=== PATIENT | female | born 1980 | race Caucasian/White ===

== ENCOUNTER 2025-07-05 12:03 | Inpatient (IN) | payer OTHER ==
[2025-07-05] MEDS ORDERED: NALOXONE (NARCAN) HCL 4 MG/0.1 ML SPRAY NS PRN (12:31)
[2025-07-05] MEDS ORDERED: BENZONATATE 200 MG CAPSULE PO PRN (12:31)
[2025-07-05] MEDS ORDERED: METHOCARBAMOL 500 MG TABLET PO PRN (12:31)
[2025-07-05] MEDS ORDERED: BISMUTH SUBSALICYLATE 524 MG/30 ML PO PRN (12:31)
[2025-07-05] MEDS ORDERED: guaiFENesin 600 MG TABLET.ER (FP) PO PRN (12:31)
[2025-07-05] MEDS ORDERED: MAG HYDROX/AL HYDROX/SIMETH 30 ML UNIT-DOSE CUP PO PRN (12:31)
[2025-07-05] MEDS ORDERED: ONDANSETRON *ODT* 4 MG TABLET SL PRN (12:31)
[2025-07-05] MEDS ORDERED: MAGNESIUM HYDROX 2400MG/30ML ORAL SUSPENSION 30 ML CUP PO PRN (12:31)
[2025-07-05] MEDS ORDERED: ACETAMINOPHEN 325 MG TABLET (FP) PO PRN (12:31)
[2025-07-05] MEDS ORDERED: POLYETHYLENE GLYCOL (HEALTHYLAX) 3350 17 GM PACKET PO PRN (12:31)
[2025-07-05] MEDS ORDERED: DICYCLOMINE HCL 10 MG CAPSULE PO PRN (12:31)
[2025-07-05] MEDS ORDERED: IBUPROFEN 400 MG TABLET (FP) PO PRN (12:31)
[2025-07-05] MEDS ORDERED: LOPERAMIDE HCL 2 MG CAPSULE PO PRN (12:31)
[2025-07-05] MEDS ORDERED: IBUPROFEN 600 MG TABLET (FP) PO PRN (12:31)
[2025-07-05] MEDS ORDERED: BENZOCAINE/MENTHOL (CHLORASEPTIC ) LOZENGE MM PRN (12:31)
[2025-07-05 13:05] VITALS: BMI 21.4
[2025-07-05] MEDS: PRENATAL VITAMINS W/ FOLIC ACID TABLET (FP) PO SCH (15:10)
[2025-07-05] MEDS: ACAMPROSATE CALCIUM 333 MG TABLET.DR PO SCH (18:31)
[2025-07-05] MEDS ORDERED: MIRTAZAPINE 15 MG TABLET (FP) ONE (21:40)
[2025-07-05] MEDS: MIRTAZAPINE 30 MG TABLET PO ONE (22:32)
[2025-07-05] MEDS: THIAMINE 100 MG TABLET PO SCH (22:32)
[2025-07-05] MEDS: APIXABAN 2.5 MG TABLET PO SCH (22:32)
[2025-07-05] MEDS: MELATONIN 5 MG TABLETS PO SCH (22:34)
[2025-07-05] MEDS: MIDODRINE HCL 5 MG TABLET PO SCH (23:52)
[2025-07-06] MEDS: NICOTINE 7 MG/24 HOURS TOPICAL PATCH TD SCH (10:09)
[2025-07-06] MEDS: BACITRACIN/POLYMYXIN B SULFATE 15 GM TUBE TP SCH (10:13)
[2025-07-06 10:36] LABS: MCHC 31.4 g/dl (32.2-35.5); MEAN CELL VOLUME 93.7 fl (79.4-94.8); MEAN PLT VOLUME 12.0 fl (9.4-12.3); RDW 13.7 % (12.2-17.1)
[2025-07-06 11:10] LABS: GLUCOSE,RANDOM 135.0 mg/dL (74-106)
[2025-07-06 11:10] LABS: HIV INTERPRETATION NEGATIVE (NEGATIVE)
[2025-07-06 11:11] LABS: TOT PROT 8.3 g/dl (6.4-8.2)
[2025-07-06 11:13] LABS: ALK PHOS 171.0 U/L (40-150)
[2025-07-06 11:15] LABS: HCV DIAGNOSTIC IN-HOUSE W/RFLX NON-REACTIVE (NONREACTIVE); SYPHILIS W/ RPR CONF NON-REACTIVE (NONREACTIVE)
[2025-07-06 11:16] LABS: CREATININE 3.1 mg/dL (0.55-1.3); SGOT/AST 52.0 U/L (5-34); SGPT/ALT 36.0 U/L (0-55)
[2025-07-06 11:20] LABS: CO2 20.0 mmol/L (21-32)
[2025-07-06] MEDS ORDERED: MIDODRINE HCL 5 MG TABLET PO SCH (21:45)
[2025-07-06] MEDS: MIRTAZAPINE 30 MG TABLET PO SCH (22:25)
[2025-07-07 10:18] LABS: GLUCOSE,RANDOM 85.0 mg/dL (74-106)
[2025-07-07 10:20] LABS: CO2 18.0 mmol/L (21-32)
[2025-07-07 10:24] LABS: CREATININE 2.79 mg/dL (0.55-1.3)
[2025-07-08] MEDS: NICOTINE POLACRILEX 2 MG GUM BUC PRN (17:11)
[2025-07-09 09:27] VITALS: BP 105/67; PULSE 75; RESP 14; TEMP 97.6
[2025-07-09] MEDS: hydrOXYzine PAMOATE 25 MG CAPSULE (FP) PO PRN (10:04)
== END 2025-07-09 10:16 | disposition home or self-care (01) | DRG 897 ==
LOC: YASAS 12:03 → Y3N 16:15
PROVIDERS: ADMIT Neuromusculoskeletal Medicine & OMM; ATTEND Allergy & Immunology
PROC: HZ2ZZZZ Detoxification Services for Substance Abuse Treatment (ICD-10-PCS; principal; 2025-07-05)
DX: F11.23 Opioid dependence with withdrawal (principal); F14.20 Cocaine dependence, uncomplicated; N18.4 Chronic kidney disease, stage 4 (severe); Z59.00 Homelessness unspecified; F10.230 Alcohol dependence with withdrawal, uncomplicated; F17.210 Nicotine dependence, cigarettes, uncomplicated; F31.9 Bipolar disorder, unspecified; F41.8 Other specified anxiety disorders; E87.5 Hyperkalemia; I95.9 Hypotension, unspecified; R79.89 Other specified abnormal findings of blood chemistry
CPT/HCPCS: 36415; 80048; 80053; 80307; 85027; 86780; 86803; 87389; 93005; 93010